=== PATIENT | female | born 1985 | race Caucasian/White ===

== ENCOUNTER 2021-06-04 23:41 | Emergency (ER) | payer OTHER ==
[~2021-06-04] VITALS: Ht 165.1 cm; Wt 70.3 kg
[~2021-06-04 23:41] MED LIST: CIPROFLOXACIN500 M1 PO; FLEXERIL PO; NORCO 5-325 TA1 EACH PO
[2021-06-05 00:43] LABS: URINE BILIRUBIN NEGATIVE (Negative); URINE BLOOD TRACE (Negative); URINE CLARITY CLEAR; URINE COLOR YELLOW; URINE GLUCOSE-RANDOM NEGATIVE (Negative); URINE KETONES NEGATIVE (Negative); URINE LEUKOCYTES-REFLEX NEGATIVE (Negative); URINE NITRITE-REFLEX NEGATIVE (Negative); URINE PROTEIN NEGATIVE (Negative); URINE SPECIFIC GRAVITY >= 1.030 (1.005-1.030); URINE UROBILINOGEN 0.2 E.U./dl (0.2-1.0)
[2021-06-05 03:02] VITALS: BP 115/63
== END 2021-06-05 03:03 | disposition home or self-care (01) ==
LOC: M.ERS 23:41
PROVIDERS: Emergency Medicine
DX: R30.0 Dysuria (principal); R10.32 Left lower quadrant pain; Z98.890 Other specified postprocedural states; Z79.899 Other long term (current) drug therapy